=== PATIENT | male | born 1980 | race Caucasian/White ===

== ENCOUNTER 2018-05-05 10:19 | Outpatient (CLI) ==
[2012-11-27 13:40] VITALS: BMI 44.9
--- NOTE | 2018-05-05 10:48 | DI ---
EXAM: Three views of the left foot. History: Left foot trauma with puncture wound. Findings: Large enthesiophyte at the insertion of the Achilles tendon. Small plantar spur. Calcifi cations seen along the course of the plantar fascia. Ill-defined osseous density seen involving the distal fibula with adjacent soft tissue swelling. Probable benign bone island within the fifth metat arsal shaft. No dislocation. Impression: Ill-defined osseous density seen involving the distal fibula consistent with age indeter minate fracture. Recommend further evaluation with dedicated views of the left ankle. Other finding s as detailed above.
== END 2018-05-05 10:20 | disposition home or self-care (01) ==
LOC: RAD 10:19
PROVIDERS: ATTEND Nurse Practitioner Family
DX: S91.332A Puncture wound without foreign body, left foot, initial encounter (principal)

== ENCOUNTER 2018-05-06 10:36 | Emergency (ER) ==
[2018-05-06 10:39] VITALS: BP 166/98; TEMP 100.7; BMI 35.6
--- NOTE | 2018-05-06 11:20 | ED.PDOC ---
General ED Provider: Dr. LESLIE LOPEZ Chief Complaint: Wound Check Stated Complaint: Foot infection. States several weeks ago he stepped on a nail out doors and did not realized he sustained a puncture wound to the plantar surface until he removed his shoe. Initially treated at home until 2 days ago when hi foot became swollen and red. Went to [facility] and was eval by MLP, Rx IM Rocephin and PO Keflex for home. Progressively worsened through today when his outer plantar surface split open and started to drain. Referred to ER by the MLP Time Seen by Physician: 11:00 Mode of Arrival: Walk-In Information Source: Patient Exam Limitations: No limitations Primary Care Provider: GELACIO AARON Referred to ED by: PCP Seen Within Last 72 Hours for Same Complaint By: PCP Nursing and Triage Documentation Reviewed and Agree: Yes Does patient meet sepsis criteria?: Yes If yes, has appropriate treatment been initiated?: Yes System Inflammatory Response Syndrome: Not Applicable Sepsis Protocol: For patient's 13 years and over: Temp is 96.8 and below OR 101 and greater Pulse >90 BPM Resp >20/minute Acutely Altered Mental Status Are patient's symptoms suggestive of a new infection, such as: -Pneumonia -Skin, Soft Tissue -Endocarditis -UTI -Bone, Joint Infection -Implantable Device -Acute Abdominal Infection -Wound Infection -Meningitis -Blood Stream Catheter Infection -Unknown Skin Complaint Exam - Skin/Soft Tissue Complaint/Exam Onset/Duration: Lt foot Symptoms Are: Worse Timing: Constant Initial Severity: Moderate Current Severity: Severe Location: Lt foot-Plantar/dorsal cellulitis, skin breakdown plantar 4th-5th MTP joint Aggravating: Reports: Unknown Alleviating: Reports: Unknown Associated Signs and Symptoms: Reports: Chills, Drainage, Bruising, Tenderness, Red streaks, Joint swelling Related History: Denies: Similar episode Skin Findings: Present: Erythema, Induration, Lymphangitic streaking, Weeping skin Joint Tenderness Present: Yes Differential Diagnoses: Abscess, Cellulitis, Infection, Lymphangitis Review of Systems - Review Of Systems Constitutional: Reports: No symptoms Eyes: Reports: No symptoms Ears, Nose, Mouth, Throat: Reports: No symptoms Respiratory: Reports: No symptoms Cardiac: Reports: No symptoms GI: Reports: No symptoms : Reports: No symptoms, Other (polyuria, polydipsia) Musculoskeletal: Reports: No symptoms Skin: Reports: No symptoms Neurological: Reports: No symptoms, Numbness Endocrine: Reports: No symptoms, Increased thirst, Increased urine Hematologic/Lymphatic: Reports: No symptoms All Other Systems: Reviewed and Negative Past Medical History - Past Medical History Previously Healthy: Yes Endocrine: Reports: None Cardiovascular: Reports: None Respiratory: Reports: None Hematological: Reports: None Gastrointestinal: Reports: None Genitourinary: Reports: None Neuro/Psych: Reports: None Musculoskeletal: Reports: None, Other (lt foot infection ) Cancer: Reports: None - Surgical History General Surgical History: Reports: None - Family History Family History: Reports: None - Social History Smoking Status: Never smoker Hx Substance Use: No Alcohol Screening: None Physical Exam - Physical Exam Appearance: Well-appearing, Obese Ill-appearing: Mild Pain Distress: Moderate Eyes: CARMELO, EOMI, Conjunctiva clear ENT: Ears normal Neck: Supple Respiratory: Airway patent, Breath sounds clear, Breath sounds equal, Respirations nonlabored Cardiovascular: RRR, Pulses normal, No rub, No murmur GI/: Soft, Nontender, No masses, Bowel sounds normal, No Organomegaly Musculoskeletal: Normal strength, ROM intact, No edema, No calf tenderness, Edema (Lt foot) Skin: Warm Neurological: Sensation intact, Motor intact, Reflexes intact, Cranial nerves intact, Alert, Oriented Psychiatric: Affect appropriate, Mood appropriate Critical Care Note - Critical Care Note Total Time (mins): 60 Course - Course Hematology/Chemistry: 05/06/18 11:38 05/06/18 11:38 Orders, Labs, Meds: Lab Review 05/06/18 05/06/18 05/06/18 11:38 11:38 11:38 WBC 14.95 H RBC 5.00 Hgb 14.3 Hct 43.2 MCV 86.4 MCH 28.6 MCHC 33.1 RDW Coeff of Hossein 11.9 Plt Count 397 Immature Gran % (Auto) 0.5 Neut % (Auto) 77.3 Lymph % (Auto) 11.5 Pepin % (Auto) 9.6 Eos % (Auto) 0.5 Baso % (Auto) 0.6 Immature Gran # (Auto) 0.1 Neut # (Auto) 11.6 H Lymph # (Auto) 1.7 Pepin # (Auto) 1.4 Eos # (Auto) 0.1 Baso # (Auto) 0.1 ESR 74 H Sodium 138.4 Potassium 3.87 Chloride 99.7 Carbon Dioxide 27.8 Anion Gap 14.77 BUN 9.6 Creatinine 0.68 Estimated GFR (MDRD) 132.00 BUN/Creatinine Ratio 14.11 Glucose 329.9 H Hemoglobin A1c Lactic Acid Calcium 9.54 Total Bilirubin 0.60 AST 22.1 ALT 19.2 Alkaline Phosphatase 95.7 Total Protein 8.81 H Albumin 4.42 Globulin 4.39 Albumin/Globulin Ratio 1.00 Procalcitonin 05/06/18 05/06/18 05/06/18 11:38 11:38 11:38 WBC RBC Hgb Hct MCV MCH MCHC RDW Coeff of Hossein Plt Count Immature Gran % (Auto) Neut % (Auto) Lymph % (Auto) Pepin % (Auto) Eos % (Auto) Baso % (Auto) Immature Gran # (Auto) Neut # (Auto) Lymph # (Auto) Pepin # (Auto) Eos # (Auto) Baso # (Auto) ESR Sodium Potassium Chloride Carbon Dioxide Anion Gap BUN Creatinine Estimated GFR (MDRD) BUN/Creatinine Ratio Glucose Hemoglobin A1c 10.98 H Lactic Acid 1.31 Calcium Total Bilirubin AST ALT Alkaline Phosphatase Total Protein Albumin Globulin Albumin/Globulin Ratio Procalcitonin 0.12 Orders Category Date Time Status BLOOD GLUCOSE MONITORING Q1HR CARE 05/06/18 12:30 Active NPO REMINDER: IMAGING ONCE CARE 05/06/18 12:24 Completed ED ACCUCHECK ASSESSMENT .ONCE EMERGENCY 05/06/18 15:46 Active IV [ED IV/MEDIPORT/POWERPORT] .ONCE EMERGENCY 05/06/18 11:14 Active BLOOD CULTURE Stat LAB 05/06/18 11:25 Received CBC W/ AUTO DIFF Stat LAB 05/06/18 11:38 Completed CMP [COMPREHENSIVE METABOLIC PANEL] Stat LAB 05/06/18 11:38 Completed ESR Stat LAB 05/06/18 11:38 Completed HEMOGLOBIN A1C Stat LAB 05/06/18 11:38 Completed LACTIC ACID Stat LAB 05/06/18 11:38 Completed PROCALCITONIN Stat LAB 05/06/18 11:38 Completed WOUND CULTURE Stat LAB 05/06/18 11:25 Received 0.9 % Sodium Chloride [Saline Flush] MEDS 05/06/18 11:17 Active 1 syr IVF PRN PRN Clindamycin Phosphate Inj [Cleocin] 600 mg MEDS 05/06/18 12:25 Discontinued 0.9 % Sodium Chloride [Sodium Chloride] 100 ml IV ONCE Hydromorphone HCl [Dilaudid 1 mg/ml Syringe] MEDS 05/06/18 15:56 Discontinued 1 mg IVP ONCE STA Insulin Regular, Human [Humulin R] MEDS 05/06/18 12:28 Discontinued 12 unit SUBCUT ONCE STA Morphine Sulfate [Morphine 4 mg/ml Syringe] MEDS 05/06/18 11:29 Discontinued 4 mg .ROUTE .STK-MED ONE Morphine Sulfate [Morphine 4 mg/ml Syringe] MEDS 05/06/18 11:30 Discontinued 4 mg IVP ONCE STA Ondansetron HCl/Pf [Zofran 4 mg/2 ml] MEDS 05/06/18 15:45 Stat 4 mg IVP ONCE STA Sodium Chloride 0.9% [Sodium Chloride] 1,000 ml MEDS 05/06/18 15:[address] FOOT LEFT WITH CONTRAST Stat RADS 05/06/18 12:24 Completed Medications Generic Name Dose Route Start Last Admin Trade Name Freq PRN Reason Stop Dose Admin Sodium Chloride 1,000 mls @ 125 mls/hr 05/06/18 15:43 05/06/18 15:55 Sodium Chloride IV 05/06/18 23:42 125 mls/hr ONCE ONE Administration Sodium Chloride 1 syr 05/06/18 11:17 05/06/18 11:52 Saline Flush IVF 1 syr PRN PRN Administration To flush IV Discontinued Medications Generic Name Dose Route Start Last Admin Trade Name Freq PRN Reason Stop Dose Admin Hydromorphone HCl 1 mg 05/06/18 15:56 Dilaudid 1 Mg/Ml Syringe IVP 05/06/18 15:57 ONCE STA Clindamycin Phosphate 600 mg/ 104 mls @ 208 mls/hr 05/06/18 12:25 05/06/18 12 :52 Sodium Chloride IV 05/06/18 12:54 208 mls/hr ONCE ONE Administration Insulin Human Regular 12 unit 05/06/18 12:28 05/06/18 12:47 Humulin R SUBCUT 05/06/18 12:29 12 unit ONCE STA Administration Morphine Sulfate 4 mg 05/06/18 11:30 05/06/18 11:51 Morphine 4 Mg/Ml Syringe IVP 05/06/18 11:31 4 mg ONCE STA Administration Ondansetron HCl 4 mg 05/06/18 15:45 05/06/18 15:56 Zofran 4 Mg/2 Ml IVP 05/06/18 15:46 4 mg ONCE STA Administration Vital Signs: Temp Pulse Resp BP Pulse Ox 05/06/18 10:36 100.7 F H 135 H 20 166/98 H 96 Departure - Departure Time of Disposition: 15:45 Disposition: PLACED OBSERVATION Discharge Problem: Abscess of left foot, Diabetes mellitus, Lymphangitis, acute, lower leg, Diabetic peripheral neuropathy Instructions: Foot Care for People with Diabetes (ED), Type 2 Diabetes in Adults: New Diagnosis (ED), Diabetic Peripheral Neuropathy (ED), Abscess (ED) Condition: Stable Pt referred to PMD for follow-up: Yes (Discussed with Dr Chun-dante wheeler) MP verified?: No Allergies/Adverse Reactions: Allergies No Known Allergies Allergy (Verified 05/06/18 10:39) Transfer Form Completed: Yes Disposition Discussed With: Patient, Family Additional Information: Dr Chun advised he had contacted [facility] in [place] who recommended ER eval then transfer to [place] Hospitalist /[facility] No bed [place] [facility] House charge/Hospitalist Dr White/accepted patient for admission and will get [facility] for consult and tx Discussed with Patient who agrees for transfer and treatment/
[2018-05-06] MEDS ORDERED: MORPHINE 4 MG/ML VIAL IVP STA (11:23)
[2018-05-06] MEDS: MORPHINE 4 MG/ML SYRINGE ONE (11:39)
[2018-05-06] MEDS: MORPHINE 4 MG/ML SYRINGE IVP STA (11:51)
[2018-05-06] MEDS: HUMULIN R SUBCUT STA (12:47)
[2018-05-06] MEDS: CLEOCIN 600 MG in SODIUM CHLORIDE 100 ML IV ONE (12:52)
--- NOTE | 2018-05-06 14:15 | CT ---
EXAM: CT of the left foot with contrast History: Left foot infection. Comparison: Left foot radiograph 05/05/2018 Technique: Multiplanar CT images through the left foot were obtained following administration of IV contrast Findings: Calcaneal enthesiopathy and calcification within the distal Achilles tendon and plantar fa scia. No acute fracture or dislocation. Well corticated ossific density seen adjacent to the distal fibula could represent old trauma or accessory ossicle. Mild polyarticular joint space narrowing. There is a soft tissue ulcer along the plantar surface of the foot over the fourth metatarsal head wi th adjacent enhancement and skin thickening with 1 cm area of focal fluid that is probably a small ab scess. There is no courtney cortical destruction to suggest osteomyelitis at this time. There is later al subcutaneous edema over the foot. Impression: 1. Plantar soft tissue ulcer with small abscess. 2. No CT evidence for acute osteomyelitis at this time. If there is concern for osteomyelitis, then consider further evaluation with MRI or nuclear medicine study. 3. Calcaneal enthesiopathy 4. Soft tissue swelling/cellulitis along the lateral aspect of the foot.
[2018-05-06] MEDS ORDERED: DILAUDID 1 MG/ML SYRINGE IM STA (15:44)
[2018-05-06] MEDS: SODIUM CHLORIDE 1,000 ML IV ONE (15:55)
[2018-05-06] MEDS: ZOFRAN 4 MG/2 ML IVP STA (15:56)
[2018-05-06] MEDS: DILAUDID 1 MG/ML SYRINGE IVP STA (15:59)
== END 2018-05-06 16:40 | disposition short-term general hospital (02) ==
LOC: ED 10:36
DX: L08.9 Local infection of the skin and subcutaneous tissue, unspecified (principal); S91.332A Puncture wound without foreign body, left foot, initial encounter; M79.89 Other specified soft tissue disorders; L03.116 Cellulitis of left lower limb; L02.612 Cutaneous abscess of left foot; I89.1 Lymphangitis; E11.42 Type 2 diabetes mellitus with diabetic polyneuropathy
CPT/HCPCS: 36415; 80053; 82962; 83036; 83605; 84145; 85025; 85651; 87040; 87070; 96361; 96365; 96372; 96375; 99285

== ENCOUNTER 2018-05-06 16:37 | Outpatient (CLI) ==
[2018-05-06 10:39] VITALS: BMI 35.6
== END 2018-05-06 17:42 | disposition short-term general hospital (02) ==
LOC: AMBL 16:37
PROVIDERS: ATTEND Emergency Medicine
DX: L97.529 Non-pressure chronic ulcer of other part of left foot with unspecified severity (principal)

== ENCOUNTER 2018-05-23 15:24 | Outpatient (CLI) | END 2018-05-23 15:25 | disposition home or self-care (01) | LOC: LAB 15:24 | PROVIDERS: ATTEND Nurse Practitioner Family | DX: R73.9 Hyperglycemia, unspecified (principal); R53.83 Other fatigue | CPT/HCPCS: 36415; 80053; 83036; 84443; 85025 ==

== ENCOUNTER 2018-06-04 11:31 | Outpatient (CLI) | END 2018-06-04 11:32 | disposition home or self-care (01) | LOC: WOUND 11:31 | PROVIDERS: ATTEND Nurse Practitioner Family | DX: E11.621 Type 2 diabetes mellitus with foot ulcer (principal); L97.522 Non-pressure chronic ulcer of other part of left foot with fat layer exposed; L02.612 Cutaneous abscess of left foot | CPT/HCPCS: 11042 ==

== ENCOUNTER 2018-06-11 09:04 | Outpatient (CLI) | END 2018-06-11 09:05 | disposition home or self-care (01) | LOC: WOUND 09:04 | PROVIDERS: ATTEND Nurse Practitioner Family | DX: E11.621 Type 2 diabetes mellitus with foot ulcer (principal); L97.522 Non-pressure chronic ulcer of other part of left foot with fat layer exposed; L02.612 Cutaneous abscess of left foot | CPT/HCPCS: 87070; 87077; 87186 ==

== ENCOUNTER 2018-06-24 08:57 | Outpatient (CLI) ==
[2018-06-24 09:16] VITALS: BP 138/91; TEMP 98.6
[2018-06-24] MEDS ORDERED: ROCEPHIN 2 GM in SODIUM CHLORIDE 50 ML IV STA (09:29)
== END 2018-06-24 08:58 | disposition home or self-care (01) ==
LOC: OPMED 08:57
PROVIDERS: ATTEND Internal Medicine Infectious Disease
DX: L02.612 Cutaneous abscess of left foot (principal); B95.2 Enterococcus as the cause of diseases classified elsewhere; M86.9 Osteomyelitis, unspecified
CPT/HCPCS: 96365

== ENCOUNTER 2018-06-25 06:25 | Outpatient (CLI) ==
[2018-06-25 07:23] VITALS: BP 132/88; TEMP 97
[2018-06-25] MEDS ORDERED: ROCEPHIN 2 GM in SODIUM CHLORIDE 100 ML IV STA (07:30)
== END 2018-06-25 06:26 | disposition home or self-care (01) ==
LOC: OPMED 06:25
PROVIDERS: ATTEND Internal Medicine Infectious Disease
DX: L02.612 Cutaneous abscess of left foot (principal); B95.2 Enterococcus as the cause of diseases classified elsewhere; M86.9 Osteomyelitis, unspecified
CPT/HCPCS: 36415; 80053; 85025; 85651; 86140; 96365

== ENCOUNTER 2018-06-26 08:25 | Outpatient (CLI) ==
[2018-06-26 09:00] VITALS: BP 134/92; TEMP 98.2
[2018-06-26] MEDS ORDERED: ROCEPHIN 2 GM in SODIUM CHLORIDE 50 ML IV STA (09:06)
== END 2018-06-26 08:26 | disposition home or self-care (01) ==
LOC: OPMED 08:25
PROVIDERS: ATTEND Internal Medicine Infectious Disease
DX: L02.612 Cutaneous abscess of left foot (principal); B95.2 Enterococcus as the cause of diseases classified elsewhere; M86.9 Osteomyelitis, unspecified
CPT/HCPCS: 96365

== ENCOUNTER 2018-06-27 08:15 | Outpatient (CLI) ==
[2018-06-27] MEDS ORDERED: ROCEPHIN IM STA (08:38)
[2018-06-27] MEDS ORDERED: LIDOCAINE HCL 1% SDV IM STA (08:38)
[2018-06-27] MEDS ORDERED: ROCEPHIN 2 GM in SODIUM CHLORIDE 50 ML IV STA (08:40)
[2018-06-27 08:41] VITALS: BP 134/85; TEMP 98.6
== END 2018-06-27 08:16 | disposition home or self-care (01) ==
LOC: OPMED 08:15
PROVIDERS: ATTEND Internal Medicine Infectious Disease
DX: L02.612 Cutaneous abscess of left foot (principal); B95.2 Enterococcus as the cause of diseases classified elsewhere; M86.9 Osteomyelitis, unspecified
CPT/HCPCS: 96365

== ENCOUNTER 2018-06-28 08:07 | Outpatient (CLI) ==
[2018-06-28] MEDS ORDERED: ROCEPHIN 2 GM in SODIUM CHLORIDE 50 ML IV ONE (08:27)
[2018-06-28 09:06] VITALS: BP 153/99; TEMP 98.9
== END 2018-06-28 08:08 | disposition home or self-care (01) ==
LOC: OPMED 08:07
PROVIDERS: ATTEND Internal Medicine Infectious Disease
DX: L02.612 Cutaneous abscess of left foot (principal); B95.2 Enterococcus as the cause of diseases classified elsewhere; M86.9 Osteomyelitis, unspecified
CPT/HCPCS: 96365; 96366

== ENCOUNTER 2018-06-29 08:13 | Outpatient (CLI) ==
[2018-06-29 08:27] VITALS: BP 163/101; TEMP 98.3
[2018-06-29] MEDS ORDERED: ROCEPHIN 2 GM in SODIUM CHLORIDE 50 ML IV STA (08:28)
== END 2018-06-29 08:14 | disposition home or self-care (01) ==
LOC: OPMED 08:13
PROVIDERS: ATTEND Internal Medicine Infectious Disease
DX: L02.612 Cutaneous abscess of left foot (principal); B95.2 Enterococcus as the cause of diseases classified elsewhere; M86.9 Osteomyelitis, unspecified
CPT/HCPCS: 96365

== ENCOUNTER 2018-06-30 08:30 | Outpatient (CLI) ==
[2018-06-30 08:41] VITALS: BP 141/92; TEMP 97.5
[2018-06-30] MEDS ORDERED: ROCEPHIN 2 GM in SODIUM CHLORIDE 50 ML IV STA (08:50)
== END 2018-06-30 08:31 | disposition home or self-care (01) ==
LOC: OPMED 08:30
PROVIDERS: ATTEND Internal Medicine Infectious Disease
DX: L02.612 Cutaneous abscess of left foot (principal); B95.2 Enterococcus as the cause of diseases classified elsewhere; M86.9 Osteomyelitis, unspecified
CPT/HCPCS: 96365

== ENCOUNTER 2018-07-01 08:12 | Outpatient (CLI) ==
[2018-07-01 08:41] VITALS: BP 145/96; TEMP 98
[2018-07-01] MEDS ORDERED: ROCEPHIN 2 GM in SODIUM CHLORIDE 50 ML IV STA (08:44)
== END 2018-07-01 08:13 | disposition home or self-care (01) ==
LOC: OPMED 08:12
PROVIDERS: ATTEND Internal Medicine Infectious Disease
DX: L02.612 Cutaneous abscess of left foot (principal); B95.2 Enterococcus as the cause of diseases classified elsewhere; M86.9 Osteomyelitis, unspecified
CPT/HCPCS: 96365

== ENCOUNTER 2018-07-02 08:14 | Outpatient (CLI) ==
[2018-07-02 08:43] VITALS: BP 129/84; TEMP 98.1
[2018-07-02] MEDS ORDERED: ROCEPHIN 2 GM in SODIUM CHLORIDE 50 ML IV STA (08:44)
== END 2018-07-02 08:15 | disposition home or self-care (01) ==
LOC: OPMED 08:14
PROVIDERS: ATTEND Internal Medicine Infectious Disease
DX: L02.612 Cutaneous abscess of left foot (principal); B95.2 Enterococcus as the cause of diseases classified elsewhere; M86.9 Osteomyelitis, unspecified
CPT/HCPCS: 36415; 80053; 85025; 85651; 86140; 96365; 96375

== ENCOUNTER 2018-07-03 08:23 | Outpatient (CLI) ==
[2018-07-03] MEDS ORDERED: ROCEPHIN 2 GM in SODIUM CHLORIDE 50 ML IV STA (09:01)
[2018-07-03 12:10] VITALS: BP 142/92; TEMP 98.2
== END 2018-07-03 08:24 | disposition home or self-care (01) ==
LOC: OPMED 08:23
PROVIDERS: ATTEND Internal Medicine Infectious Disease
DX: L02.612 Cutaneous abscess of left foot (principal); B95.2 Enterococcus as the cause of diseases classified elsewhere; M86.9 Osteomyelitis, unspecified
CPT/HCPCS: 96365

== ENCOUNTER 2018-07-04 08:25 | Outpatient (CLI) ==
[2018-07-04 08:53] VITALS: BP 142/53; TEMP 98.2
[2018-07-04] MEDS ORDERED: ROCEPHIN 2 GM in SODIUM CHLORIDE 50 ML IV STA (08:55)
== END 2018-07-04 08:26 | disposition home or self-care (01) ==
LOC: OPMED 08:25
PROVIDERS: ATTEND Internal Medicine Infectious Disease
DX: L02.612 Cutaneous abscess of left foot (principal); B95.2 Enterococcus as the cause of diseases classified elsewhere; M86.9 Osteomyelitis, unspecified
CPT/HCPCS: 96365

== ENCOUNTER 2018-07-05 08:27 | Outpatient (CLI) ==
[2018-07-05] MEDS ORDERED: ROCEPHIN 2 GM in SODIUM CHLORIDE 50 ML IV STA (08:46)
[2018-07-05 09:21] VITALS: BP 141/82; TEMP 98.3
== END 2018-07-05 08:28 | disposition home or self-care (01) ==
LOC: OPMED 08:27
PROVIDERS: ATTEND Internal Medicine Infectious Disease
DX: L02.612 Cutaneous abscess of left foot (principal); B95.2 Enterococcus as the cause of diseases classified elsewhere; M86.9 Osteomyelitis, unspecified
CPT/HCPCS: 96365

== ENCOUNTER 2018-07-06 08:43 | Outpatient (CLI) ==
[2018-07-06] MEDS ORDERED: ROCEPHIN 2 GM in SODIUM CHLORIDE 50 ML IV STA (08:58)
[2018-07-06 09:31] VITALS: BP 133/83; TEMP 98.5
== END 2018-07-06 08:44 | disposition home or self-care (01) ==
LOC: OPMED 08:43
PROVIDERS: ATTEND Internal Medicine Infectious Disease
DX: L02.612 Cutaneous abscess of left foot (principal); B95.2 Enterococcus as the cause of diseases classified elsewhere; M86.9 Osteomyelitis, unspecified
CPT/HCPCS: 96365

== ENCOUNTER 2018-07-07 08:42 | Outpatient (CLI) ==
[2018-07-07] MEDS ORDERED: ROCEPHIN 2 GM in SODIUM CHLORIDE 50 ML IV STA (08:56)
[2018-07-07] MEDS ORDERED: HEPARIN 500 UNIT/5 ML (PORT ACCESS TRAY ONLY) IVF ONE (09:02)
[2018-07-07 09:26] VITALS: BP 135/94; TEMP 98
== END 2018-07-07 08:43 | disposition home or self-care (01) ==
LOC: OPMED 08:42
PROVIDERS: ATTEND Internal Medicine Infectious Disease
DX: L02.612 Cutaneous abscess of left foot (principal); B95.2 Enterococcus as the cause of diseases classified elsewhere; M86.9 Osteomyelitis, unspecified
CPT/HCPCS: 96365

== ENCOUNTER 2018-07-08 08:30 | Outpatient (CLI) ==
[2018-07-08 08:46] VITALS: BP 143/68; TEMP 98.3
[2018-07-08] MEDS ORDERED: ROCEPHIN 2 GM in SODIUM CHLORIDE 50 ML IV SCH (09:00)
[2018-07-08] MEDS ORDERED: ROCEPHIN 2 GM in SODIUM CHLORIDE 50 ML IV ONE (09:00)
== END 2018-07-08 08:31 | disposition home or self-care (01) ==
LOC: OPMED 08:30
PROVIDERS: ATTEND Internal Medicine Infectious Disease
DX: L02.612 Cutaneous abscess of left foot (principal); B95.2 Enterococcus as the cause of diseases classified elsewhere; M86.9 Osteomyelitis, unspecified
CPT/HCPCS: 96365

== ENCOUNTER 2018-07-09 08:22 | Outpatient (CLI) ==
[2018-07-09 08:55] VITALS: BP 126/84; TEMP 98
[2018-07-09] MEDS: ROCEPHIN 2 GM in SODIUM CHLORIDE 50 ML IV STA (09:15)
== END 2018-07-09 08:23 | disposition home or self-care (01) ==
LOC: OPMED 08:22
PROVIDERS: ATTEND Internal Medicine Infectious Disease
DX: L02.612 Cutaneous abscess of left foot (principal); B95.2 Enterococcus as the cause of diseases classified elsewhere; M86.9 Osteomyelitis, unspecified; Z13.220 Encounter for screening for lipoid disorders
CPT/HCPCS: 36415; 80053; 80061; 85025; 85651; 86140; 96365

== ENCOUNTER 2018-07-10 08:16 | Outpatient (CLI) ==
[2018-07-10 08:27] VITALS: BP 140/92; TEMP 97.5
[2018-07-10] MEDS: ROCEPHIN 2 GM in SODIUM CHLORIDE 50 ML IV STA (08:45)
== END 2018-07-10 08:17 | disposition home or self-care (01) ==
LOC: OPMED 08:16
PROVIDERS: ATTEND Internal Medicine Infectious Disease
DX: L02.612 Cutaneous abscess of left foot (principal); B95.2 Enterococcus as the cause of diseases classified elsewhere; M86.9 Osteomyelitis, unspecified
CPT/HCPCS: 96365

== ENCOUNTER 2018-07-11 08:25 | Outpatient (CLI) ==
[2018-07-11 08:36] VITALS: BP 155/96; TEMP 98.1
[2018-07-11] MEDS: ROCEPHIN 2 GM in SODIUM CHLORIDE 50 ML IV STA (08:45)
== END 2018-07-11 08:26 | disposition home or self-care (01) ==
LOC: OPMED 08:25
PROVIDERS: ATTEND Internal Medicine Infectious Disease
DX: L02.612 Cutaneous abscess of left foot (principal); B95.2 Enterococcus as the cause of diseases classified elsewhere; M86.9 Osteomyelitis, unspecified
CPT/HCPCS: 96365

== ENCOUNTER 2018-07-12 08:24 | Outpatient (CLI) ==
[2018-07-12 08:49] VITALS: BP 136/88; TEMP 98
[2018-07-12] MEDS ORDERED: ROCEPHIN 2 GM in SODIUM CHLORIDE 50 ML IV STA (08:50)
== END 2018-07-12 08:25 | disposition home or self-care (01) ==
LOC: OPMED 08:24
PROVIDERS: ATTEND Internal Medicine Infectious Disease
DX: L02.612 Cutaneous abscess of left foot (principal); B95.2 Enterococcus as the cause of diseases classified elsewhere; M86.9 Osteomyelitis, unspecified
CPT/HCPCS: 96365

== ENCOUNTER 2018-07-13 08:34 | Outpatient (CLI) ==
[2018-07-13] MEDS ORDERED: ROCEPHIN 2 GM in SODIUM CHLORIDE 50 ML IV STA (08:43)
[2018-07-13 08:49] VITALS: BP 145/92; TEMP 98.2
== END 2018-07-13 08:35 | disposition home or self-care (01) ==
LOC: OPMED 08:34
PROVIDERS: ATTEND Internal Medicine Infectious Disease
DX: L02.612 Cutaneous abscess of left foot (principal); B95.2 Enterococcus as the cause of diseases classified elsewhere; M86.9 Osteomyelitis, unspecified
CPT/HCPCS: 96365

== ENCOUNTER 2018-07-14 08:39 | Outpatient (CLI) ==
[2018-07-14 08:59] VITALS: BP 131/82; TEMP 97.8
[2018-07-14] MEDS ORDERED: ROCEPHIN 2 GM in SODIUM CHLORIDE 50 ML IV STA (09:02)
== END 2018-07-14 08:40 | disposition home or self-care (01) ==
LOC: OPMED 08:39
PROVIDERS: ATTEND Internal Medicine Infectious Disease
DX: L02.612 Cutaneous abscess of left foot (principal); B95.2 Enterococcus as the cause of diseases classified elsewhere; M86.9 Osteomyelitis, unspecified
CPT/HCPCS: 96365

== ENCOUNTER 2018-07-15 08:25 | Outpatient (CLI) ==
[2018-07-15 08:51] VITALS: BP 133/88; TEMP 98.2
[2018-07-15] MEDS ORDERED: ROCEPHIN 2 GM in SODIUM CHLORIDE 50 ML IV STA (08:53)
== END 2018-07-15 08:26 | disposition home or self-care (01) ==
LOC: OPMED 08:25
PROVIDERS: ATTEND Internal Medicine Infectious Disease
DX: L02.612 Cutaneous abscess of left foot (principal); B95.2 Enterococcus as the cause of diseases classified elsewhere; M86.9 Osteomyelitis, unspecified
CPT/HCPCS: 96365

== ENCOUNTER 2018-07-16 08:21 | Outpatient (CLI) ==
[2018-07-16] MEDS ORDERED: ROCEPHIN 2 GM in SODIUM CHLORIDE 50 ML IV STA (08:38)
[2018-07-16 09:02] VITALS: BP 126/75; TEMP 98
== END 2018-07-16 08:22 | disposition home or self-care (01) ==
LOC: OPMED 08:21
PROVIDERS: ATTEND Internal Medicine Infectious Disease
DX: L02.612 Cutaneous abscess of left foot (principal); B95.2 Enterococcus as the cause of diseases classified elsewhere; M86.9 Osteomyelitis, unspecified
CPT/HCPCS: 36415; 80053; 85025; 85651; 86140

== ENCOUNTER 2018-07-17 08:19 | Outpatient (CLI) ==
[2018-07-17 08:31] VITALS: BP 138/86; TEMP 97.9
[2018-07-17] MEDS ORDERED: ROCEPHIN 2 GM in SODIUM CHLORIDE 50 ML IV STA (08:33)
== END 2018-07-17 08:20 | disposition home or self-care (01) ==
LOC: OPMED 08:19
PROVIDERS: ATTEND Internal Medicine Infectious Disease
DX: L02.612 Cutaneous abscess of left foot (principal); B95.2 Enterococcus as the cause of diseases classified elsewhere; M86.9 Osteomyelitis, unspecified
CPT/HCPCS: 96365

== ENCOUNTER 2018-07-18 08:14 | Outpatient (CLI) ==
[2018-07-18 08:54] VITALS: TEMP 98.2
[2018-07-18] MEDS ORDERED: ROCEPHIN 2 GM in SODIUM CHLORIDE 50 ML IV STA (08:56)
== END 2018-07-18 08:15 | disposition home or self-care (01) ==
LOC: OPMED 08:14
PROVIDERS: ATTEND Internal Medicine Infectious Disease
DX: L02.612 Cutaneous abscess of left foot (principal); B95.2 Enterococcus as the cause of diseases classified elsewhere; M86.9 Osteomyelitis, unspecified
CPT/HCPCS: 96365

== ENCOUNTER 2018-07-19 07:52 | Outpatient (CLI) ==
[2018-07-19] MEDS ORDERED: ROCEPHIN 2 GM in SODIUM CHLORIDE 50 ML IV STA (08:01)
[2018-07-19 08:38] VITALS: BP 129/81; TEMP 97.9
== END 2018-07-19 07:53 | disposition home or self-care (01) ==
LOC: OPMED 07:52
PROVIDERS: ATTEND Internal Medicine Infectious Disease
DX: L02.612 Cutaneous abscess of left foot (principal); B95.2 Enterococcus as the cause of diseases classified elsewhere; M86.9 Osteomyelitis, unspecified
CPT/HCPCS: 96365

== ENCOUNTER 2018-07-20 08:36 | Outpatient (CLI) ==
[2018-07-20] MEDS ORDERED: ROCEPHIN 2 GM in SODIUM CHLORIDE 50 ML IV STA (08:43)
[2018-07-20 08:52] VITALS: BP 143/84; TEMP 98.7
== END 2018-07-20 08:37 | disposition home or self-care (01) ==
LOC: OPMED 08:36
PROVIDERS: ATTEND Internal Medicine Infectious Disease
DX: L02.612 Cutaneous abscess of left foot (principal); B95.2 Enterococcus as the cause of diseases classified elsewhere; M86.9 Osteomyelitis, unspecified
CPT/HCPCS: 96365

== ENCOUNTER 2018-07-21 09:18 | Outpatient (CLI) ==
[2018-07-21] MEDS ORDERED: ROCEPHIN 2 GM in SODIUM CHLORIDE 50 ML IV STA (09:27)
[2018-07-21 09:35] VITALS: BP 134/85; TEMP 98.4
== END 2018-07-21 10:52 | disposition home or self-care (01) ==
LOC: OPMED 09:18
PROVIDERS: ATTEND Internal Medicine Infectious Disease
DX: L02.612 Cutaneous abscess of left foot (principal); B95.2 Enterococcus as the cause of diseases classified elsewhere; M86.9 Osteomyelitis, unspecified
CPT/HCPCS: 96365; 96375

== ENCOUNTER 2018-07-22 08:24 | Outpatient (CLI) ==
[2018-07-22 08:51] VITALS: BP 130/78; TEMP 97.8
[2018-07-22] MEDS ORDERED: ROCEPHIN 2 GM in SODIUM CHLORIDE 50 ML IV SCH (09:00)
[2018-07-22] MEDS ORDERED: ROCEPHIN 2 GM in SODIUM CHLORIDE 50 ML IV ONE (09:00)
== END 2018-07-22 08:25 | disposition home or self-care (01) ==
LOC: OPMED 08:24
PROVIDERS: ATTEND Internal Medicine Infectious Disease
DX: L02.612 Cutaneous abscess of left foot (principal); B95.2 Enterococcus as the cause of diseases classified elsewhere; M86.9 Osteomyelitis, unspecified
CPT/HCPCS: 96365

== ENCOUNTER 2018-07-23 08:32 | Outpatient (CLI) ==
[2018-07-23 08:43] VITALS: BP 139/86; TEMP 97.8
[2018-07-23] MEDS ORDERED: ROCEPHIN 2 GM in SODIUM CHLORIDE 50 ML IV STA (08:46)
== END 2018-07-23 08:33 | disposition home or self-care (01) ==
LOC: OPMED 08:32
PROVIDERS: ATTEND Internal Medicine Infectious Disease
DX: L02.612 Cutaneous abscess of left foot (principal); B95.2 Enterococcus as the cause of diseases classified elsewhere; M86.9 Osteomyelitis, unspecified
CPT/HCPCS: 36415; 80053; 85025; 85651; 86140; 96365

== ENCOUNTER 2018-07-25 12:14 | Outpatient (CLI) ==
[2018-07-25 12:53] VITALS: BP 142/81; TEMP 98
== END 2018-07-25 12:15 | disposition home or self-care (01) ==
LOC: OPMED 12:14
PROVIDERS: ATTEND Internal Medicine Infectious Disease
DX: M86.072 Acute hematogenous osteomyelitis, left ankle and foot (principal)